=== PATIENT | female | born 1980 | race Two or more races ===

== ENCOUNTER 2018-03-02 06:26 | Day surgery (SDC) | payer OTHER | END 2018-03-02 13:50 | disposition home or self-care (01) | LOC: AMB-ENDOS 06:26 | DX: D12.0 Benign neoplasm of cecum (principal); K64.8 Other hemorrhoids ==

== ENCOUNTER 2021-04-09 09:49 | Day surgery (SDC) | payer OTHER | END 2021-04-09 14:45 | disposition home or self-care (01) | LOC: AMB-ENDOS 09:49 | PROVIDERS: ATTEND Colon & Rectal Surgery | DX: D12.4 Benign neoplasm of descending colon (principal); K64.8 Other hemorrhoids; Z20.822 Contact with and (suspected) exposure to COVID-19; Z12.11 Encounter for screening for malignant neoplasm of colon ==